=== PATIENT | female | born 1980 | race Caucasian/White ===

== ENCOUNTER 2017-07-11 06:08 | Day surgery (SDC) | payer MEDICAID, BC ==
[~2017-07-11 06:08] MED LIST: CEFAZOLIN 2 GM/50 ML (PMX) 50 ML IVPB
[2017-07-11] MEDS ORDERED: CEFAZOLIN 1 GM INJ (07:00)
[2017-07-11] MEDS ORDERED: ROCURONIUM 50 MG INJ (07:00)
[2017-07-11] MEDS ORDERED: EPHEDrine SULFATE 50 MG/5 ML SYG (07:00)
[2017-07-11 07:02] LABS: ADD MAN DIFF? NO
[2017-07-11 07:11] LABS: BASOPHILS % 0.2 % (0.0-2.0); EOSINOPHILS % 0.5 % (0.0-7.0); HEMATOCRIT 38.8 % (37.0-47.0); HEMOGLOBIN 13.5 g/dl (12.0-16.0); LYMPHOCYTES # 1.6 10^3/ul (0.8-2.9); LYMPHOCYTES % 25.8 % (15.0-51.0); MEAN CORPUSCULAR HEMOGLOBIN 31.9 pg (29.0-33.0); MEAN CORPUSCULAR HGB CONC 34.8 g/dl (32.0-37.0); MEAN CORPUSCULAR VOLUME 91.7 fl (82.0-101.0); MEAN PLATELET VOLUME 9.9 fl (7.4-10.4); MONOCYTE # 0.4 10^3/ul (0.3-0.9); MONOCYTES % 6.7 % (0.0-11.0); NEUTROPHIL # 4.2 10^3/ul (1.6-7.5); NEUTROPHILS % 66.6 % (39.0-77.0); PLATELET COUNT 251 10^3/UL (140-415); RED BLOOD COUNT 4.23 10^6/ul (4.20-5.40); RED CELL DISTRIBUTION WIDTH 12.3 % (11.5-14.5)
[2017-07-11 07:11] LABS: WHITE BLOOD COUNT 6.2 10^3/ul (4.8-10.8)
[2017-07-11 07:20] LABS: ADD UMIC YES; UR ASCORBIC ACID NEGATIVE (NEGATIVE); UR BACTERIA FEW /HPF (NONE SEEN); UR BILIRUBIN (Dip) NEGATIVE (NEGATIVE); UR BLOOD (Dip) 1+ mg/dL (NEGATIVE); UR CLARITY SLIGHTLY CLOUDY (CLEAR); UR COLOR STRAW (YELLOW); UR GLUCOSE (Dip) NEGATIVE (NEGATIVE); UR KETONES (Dip) TRACE mg/dL (NEGATIVE); UR LEUKOCYTE ESTERASE (Dip) NEGATIVE Leu/ul (NEGATIVE); UR NITRITE (Dip) NEGATIVE (NEGATIVE); UR RBC 0 /HPF (0-5); UR SPECIFIC GRAVITY (Dip) 1.002 (1.003-1.030); UR SQUAMOUS EPITHELIAL CELL FEW /HPF (FEW); UR TOTAL PROTEIN (Dip) NEGATIVE (NEGATIVE); UR UROBILINOGEN (Dip) NEGATIVE (NEGATIVE); UR WBC 2 /HPF (0-5)
[2017-07-11] MEDS ORDERED: BUPIVACAINE 0.5% (SDV) 30 ML INJ (07:34)
[2017-07-11 07:35] LABS: INR 0.92; PROTIME 12.4 Sec (11.9-14.9)
[2017-07-11 07:36] LABS: PARTIAL THROMBOPLASTIN TIME 29.4 Sec (25.0-35.0)
[2017-07-11] MEDS ORDERED: FENTAnyl 50 MCG/ML VIAL ×2 (08:27→09:45)
[2017-07-11] MEDS ORDERED: LIDOCAINE 2% (SDV) 5 ML INJ (08:27)
[2017-07-11] MEDS ORDERED: MIDAZOLAM 1 MG/ML 2 ML INJ (08:27)
[2017-07-11] MEDS ORDERED: PROPOFOL 20 ML (08:27)
[2017-07-11] MEDS ORDERED: SUCCINYLCHOLINE CHLORIDE 100 MG/5 ML SYG IV (08:27)
[2017-07-11] MEDS ORDERED: DEXAMETHASONE 4 MG/ML 1 ML INJ (08:38)
[2017-07-11] MEDS ORDERED: ONDANSETRON 4 MG INJ (08:38)
[2017-07-11] MEDS ORDERED: FAMOTIDINE 20 MG INJ (08:38)
[2017-07-11] MEDS: BUPIVACAINE 0.5%/EPI (SDV) 30 ML INJ (09:20)
[2017-07-11] MEDS ORDERED: FENTAnyl 50 MCG/ML VIAL IV ×3 (09:30)
[2017-07-11] MEDS ORDERED: DIPHENHYDRAMINE 50 MG INJ IV (09:30)
[2017-07-11] MEDS ORDERED: OXYCODONE/ACETAMINOPHEN (5/325) TAB PO (09:30)
[2017-07-11] MEDS ORDERED: HYDROmorphONE (0.2 MG/ML) 10ML SYG IV ×3 (09:30)
[2017-07-11] MEDS ORDERED: PROCHLORPERAZINE 10 MG INJ IV (09:30)
[2017-07-11] MEDS ORDERED: ONDANSETRON 4 MG INJ IV (09:30)
[2017-07-11] MEDS ORDERED: MEPERIDINE 25 MG INJ IV (09:30)
[2017-07-11] MEDS ORDERED: SUGAMMADEX SODIUM 200 MG/2 ML VIAL IV (09:39)
[2017-07-11] MEDS ORDERED: KETOROLAC 30 MG INJ (09:40)
== END 2017-07-11 11:30 | disposition home or self-care (01) ==
LOC: SDS 06:08
DX: Z30.2 Encounter for sterilization (principal); Z64.1 Problems related to multiparity
CPT/HCPCS: 58670; 81001; 85025; 85610; 85730; 88302